=== PATIENT | male | born 1990 | race African-American/Black ===

== ENCOUNTER 2022-10-11 17:30 | Outpatient (CLI) | payer BC | END 2022-10-11 17:31 | disposition home or self-care (01) | LOC: SLEEPLAB 17:30 | PROVIDERS: ATTEND Nurse Practitioner Family | DX: G47.33 Obstructive sleep apnea (adult) (pediatric) (principal); G47.61 Periodic limb movement disorder; F41.9 Anxiety disorder, unspecified; R35.1 Nocturia; G47.00 Insomnia, unspecified; E66.9 Obesity, unspecified | CPT/HCPCS: 95800 ==

== ENCOUNTER 2022-11-17 08:27 | Outpatient (CLI) | payer BC | END 2022-11-17 08:28 | disposition home or self-care (01) | LOC: SCSRAD 08:27 | PROVIDERS: ATTEND Nurse Practitioner Family | DX: M51.15 Intervertebral disc disorders with radiculopathy, thoracolumbar region (principal); M25.78 Osteophyte, vertebrae; M41.9 Scoliosis, unspecified | CPT/HCPCS: 72110 ==